=== PATIENT | male | born 1960 | race Caucasian/White ===

== ENCOUNTER 2020-12-06 08:46 | Observation (INO) | payer SELFPAY ==
[2020-12-06] VITALS (114 sets, daily range): BP systolic 110–180; BP diastolic 50–117; PULSE 58–80; RESP 7–30; TEMP 36.7–36.9; O2SAT 80–100
--- NOTE | 2020-12-06 09:34 | ECG_ITS ---
[facility] Test Date: 2020-12-06 Pat Name: Jeff Rosa Department: Room: 105 Gender: Male Health Care Legal Assistant: : 1960 Requested By: Janette Garrido Order Number: [id number] Maryann MD: Lars Squiers M.D. Measurements Intervals [place] Rate: 57 P: 57 MO: 135 QRS: 45 QRSD: 82 T: 73 QT: 451 QTc: 441 Interpretive Statements SINUS BRADYCARDIA LEFT VENTRICULAR HYPERTROPHY AND ST-T CHANGE [VOLTAGE CRITERIA PLUS ST/T ABNORMALITY] No previous ECG available for comparison Electronically Signed On 12-06-2020 17:01:05 SHELL CORE AND MOLDING SUPERVISOR by Lars Squires M.D. [id number]
--- NOTE | 2020-12-06 09:36 | XRR_ITS ---
PROCEDURE INFORMATION: Exam: XR Chest, 2 Views Exam date and time: 12/06/2020 10:11 AM Age: 60 years old Clinical indication: Chest pain; Additional info: Cghest pain TECHNIQUE: Imaging protocol: XR of the chest Views: 2 views. COMPARISON: No relevant prior studies available. FINDINGS: Lungs: Unremarkable. No consolidation. Pleural spaces: Unremarkable. No pleural effusion. No pneumothorax. Heart/Mediastinum: Unremarkable. No cardiomegaly. Bones/joints: Unremarkable. XR/XR chest 2V* [id number] IMPRESSION: No acute findings.
--- NOTE | 2020-12-06 09:40 | USCV_ITS ---
Shelley Jeff Age: 60 Gender: M : 1960 Exam Date: 12/06/2020 13:27 Ordering Phys: Ortiz Burton MD Technologist: Brenda Guy [place] [facility] [place]ication: SOB BP: 159 / 79 HR: 74 Rhythm: Sinus Technical Quality: Fair MEASUREMENTS (Male / Female) Normal Values 2D ECHO LV Diastolic Diameter PLAX 3.9 cm 4.2 - 5.9 / 3.9 - 5.3 cm LV Systolic Diameter PLAX 2.5 cm LV Chamber Size 2.8 cm IVS Diastolic Thickness 1.7 cm 0.6 - 1.0 / 0.6 - 0.9 cm IVS Systolic Thickness 2.1 cm LVPW Diastolic Thickness 0.8 cm 0.6 - 1.0 / 0.6 - 0.9 cm LVPW Systolic Thickness 1.3 cm RV Chamber Size 2.3 cm LVOT Diameter 2.2 cm LV Ejection Fraction 2D Teich 66.0 % LV Ejection Fraction MOD 2C 57.4 % LV Ejection Fraction 2C AL 60.3 % LA Diameter 2.1 cm LA Width 2.6 cm LA Height 4.4 cm RA Width 1.9 cm RA Height 4.1 cm Aorta at Sinotubular Diameter 3.1 cm M-MODE LV Diastolic Diameter MM 5.9 cm 4.2 - 5.9 / 3.9 - 5.3 cm LV Systolic Diameter MM 4.3 cm LV Ejection Fraction MM Teich 51.1 % IVS Diastolic Thickness MM 1.4 cm 0.6 - 1.0 / 0.6 - 0.9 cm IVS Systolic Thickness MM 2.0 cm LVPW Diastolic Thickness MM 1.3 cm 0.6 - 1.0 / 0.6 - 0.9 cm LVPW Systolic Thickness MM 1.8 cm Aortic Annulus Diameter 3.6 cm LA Ao Ratio MM 0.6 MV E Point Septal Separation 0.8 cm DOPPLER AV Peak Velocity 94.3 cm/s LVOT Peak Velocity 75.0 cm/s AV Area Cont Eq vti 3.1 cm squared AV Area Cont Eq pk 2.9 cm squared MV Area PHT 3.1 cm squared Mitral E to A Ratio 1.4 MV E' Velocity 44.5 cm/s Mitral E to MV E' Ratio 6.1 Mitral E to LV E' Lateral Ratio 5.4 Mitral E to LV E' Septal Ratio 7.1 TV Peak E Velocity 55.0 cm/s Right Atrial Pressure 3.0 mmHg FINDINGS Left Ventricle Normal left ventricular size and systolic function with no regional wall motion abnormalities. EF is 55 to 60%. Normal diastolic filling pattern. Right Ventricle The right ventricle is normal in size and function. Right Atrium The right atrium is normal in size. Left Atrium The left atrium is normal in size. Mitral Valve Structurally normal mitral valve without significant stenosis or prolapse. There is no mitral regurgitation. Aortic Valve Structurally normal aortic valve without significant sclerosis or stenosis. There is no aortic regurgitation. Tricuspid Valve Structurally normal tricuspid valve without significant stenosis. Trace tricuspid regurgitation. Insufficient TR jet to calculate RVSP. Pulmonic Valve Structurally normal pulmonic valve without significant stenosis. There is no pulmonic regurgitation. Pericardium Normal pericardium without effusion. Aorta Normal ascending aorta dimension. CONCLUSIONS LV systolic function is normal with EF of 55 to 60%. Normal diastolic function. No significant valvular heart disease is seen. Trace tricuspid regurgitation is seen. No comparisons studies are available. Lars Squires MD (Electronically Signed) Final Date: 06 December 2020 18:07 S
--- NOTE | 2020-12-06 10:07 | PM.CONSULT ---
Providers/Reason For Consult Consulting Physican/Specialty*: Lars Squires MD/ Cardiology Reason for Consult*: NSTEMI Requesting Physcian: Dr Potter Attending Physician: Janette Garrido MD History of Present Illness History of Present Illness Jeff Rosa is a 60 year old male with past medical history of hypertension and diabetes presented to [facility] last night with 1 hour of chest pain. According to patient he started noticing chest pain at 10 PM last night. It was substernal, severe about 9/10 in intensity. It radiated to his left arm and jaw. He did not have any history of coronary artery disease. He is a current smoker and smokes about 1 pack/day. Patient was offered to be transferred to [facility] however he wanted to drive by himself and came last night to the hospital. His initial troponin was 52 that trended up to 69. Review of Systems Narrative: CONSTITUTIONAL: No fever chills weight loss or gain or night sweats. [] HEENT: Normocephalic, atraumatic.[] RESPIRATORY: No cough, sputum, hemoptysis or wheezing.[] CARDIOVASCULAR: No shortness of breath, chest pain, PND, orthopnea, lower extremity edema, presyncope or syncope. [] GI: no nausea vomiting diarrhea. [] QUALITY NURSE: No numbness, tingling, weakness or loss of function in any part of the body. [] MUSCULOSKELETAL: No knee or joint pain or rashes. [] Meds/Allergies Home Medications and Allergies Home Medications Medication Instructions Recorded Confirmed Last Taken Type No Known Home Medications 12/06/20 12/06/20 Unknown History Allergies Allergy/AdvReac Type Severity Reaction Status Date / Time No Known Allergies Allergy Verified 12/06/20 09:37 PFSH Acute PFSH: Medical History Diabetes Hypertension Social History Smoking and tobacco status: current every day smoker Vitals/I&O/Wt Weight last 48 hrs Weight 165 lb 9.6 oz Physical Exam Narrative: EXAM NARRATIVE: GENERAL: Patient is alert, awake and oriented x3. [] NECK: No jugular vein distension. [] HEENT: No cyanosis. No icterus. No pallor. [] HEART: Regular S1 and S2. No murmur, rub or gallop. [] LUNGS: Clear to auscultate bilaterally. [] ABDOMEN: Soft, nontender and nondistended. Positive bowel sounds. No guarding, rebound or tenderness. [] CENTRAL NERVOUS SYSTEM: Grossly nonfocal. [] EXTREMITIES: Lower extremities with no edema bilaterally. Pulses palpable in the lower extremities, both dorsalis pedis and posterior tibial. [] A&P Assessment and plan (1) NSTEMI (non-ST elevated myocardial infarction): Status: Acute (2) Diabetes: Status: Acute (3) Hypertension: Status: Acute (4) Chest pain: Status: Acute Patient had typical chest pain associated with troponin elevation. He has significant coronary artery disease risk factors. We will proceed with coronary angiogram with possible percutaneous coronary intervention. I had a detailed discussion with patient about risks and benefits of the procedure. Risks including bleeding, infection, abnormal heart rhythm, kidney function worsening, heart attack, stroke or have been described. Patient understands the risks and benefits and wants to proceed with the procedure. Keep n.p.o. Continue aspirin and statin. Management of diabetes per primary team. Thank you for involving us with care of this patient. Cardiology will continue to follow. Coding Level of Care Code Acute Floor Coverings Installer for Viraj Baxter Diagnoses NSTEMI (non-ST elevated myocardial infarction) I21.4 Diabetes E11.9 Hypertension I10 Chest pain R07.9
--- NOTE | 2020-12-06 10:10 | XACV_ITS ---
Exam Room: [facility] Ht: 170 cm Wt: 75 kg BSA: 1.89 m2 Gender: Male : 1960 Any Known Allergies: No known allergies Exam Priority: Routine Procedure(s): Procedure Description: Diagnostic procedure Procedure Description: Left Heart Catheterization Procedure Description: Left ventriculography Procedure Description: Coronary Angiography Diagnostic Cath Status: Urgent Diagnostic Findings * LAD arises from left main artery. It has mild luminal irregularities. Gives rise to a medium sized diagonal artery. No significant stenosis is seen either in LAD or diagonal.. * Left circumflex artery is a medium sized vessel. It has luminal irregularities however no significant stenosis is seen.. * RCA is a large vessel that gives rise to a PDA and a PLV branch. No significant stenosis is seen. RCA has 0% stenosis. * There is a distal left main artery severe * 80% stenosis. LM: Severe 80% stenosis, KAILEY: 3 flow. * Ramus intermedius:It is a medium sized vessel. No significant stenosis is seen.. * Coronary angiography shows right dominance. Conclusions 1. There is severe coronary artery disease with severe left main stenosis. 2. Normal left ventricular systolic function. Ejection fraction of 55%. Recommendations * Patient has isolated severe distal left main stenosis. We will recommend consult CT surgery for possible coronary artery bypass surgery. * Transfer back to [facility]. * Consult CT surgery. * Continue aspirin, hold Plavix. * Continue anticoagulation. Interventional RX Recommendation: CABG Diagnostic RX Recommendation: CABG Anticoagulation: Heparin Ventriculography Ejection Fraction: 55.0 % Pressures Phase:Rest AO : 164 / 86 ( 117 ) @ 4:51:00 AM 156 / 83 ( 116 ) @ 4:59:00 AM 186 / 94 ( 126 ) @ 5:10:00 AM 163 / 85 ( 114 ) @ 5:16:00 AM 184 / 86 ( 125 ) @ 5:22:00 AM 182 / 83 ( 124 ) @ 5:22:00 AM LV : 196 / 5 / @ 5:21:00 AM 184 / 3 / @ 5:22:00 AM 184 / 3 / @ 5:22:00 AM Valves Phase:DefaultPhase AV : 0.0 @ 11:35:04 AM AV Mean Gradient: 0.0 @ 11:35:04 AM Clinical Evaluation EBL: 5mL-10mL Procedural Details Procedure Consent Obtained. Pre-Procedure Time Out. Identified patient by full name and date of as verbalized by the patient/guarantor. Does the consent match the physician's order: Yes. Accurate & Complete Informed Consent: Yes. Inpatient/Outpatient History & Physical on Chart: Yes. If H&P is completed, is and addenduem needed: No; If yes, is the addendum complete: N/A. Visualize and Verify Site with Patient/Guarantor: N/A. Relevant Radiology Images available: N/A. Pre-op teaching completed and patient verbalized understanding. The risks, benefits, and alternatives of sedation and/or procedure were discussed by physician. The patient agrees to continue. Procedure started. [facility] Clinical Fraility Score: 2: Well. Production Controller Indications: ACS <= 24 hours. Chest Pain Symptom Assessment: Typical Angina Symptoms. Cardiovascular Instability: No. Correct patient, site and procedure confirmed by cath team. PERRLA. Strong, equal hand music manager bilaterally. Lungs clear x 5 lobes. IV Site on Arrival: 20 gauge in the left forearm. IV Fluids: 0.9% NaCl at KVO. 0 mL infused prior to slab polisher. Pre Procedural Pulses: bilateral radial was 3+. Pre Procedural Pulses: bilateral dorsalis pedis was Doppled. Pre Procedural Pulses: bilateral posterior tibial was Doppled. Oxygen started at 2liters/min via nasal canula. Physician arrived. Equipment: 6F - Radial. Cardiac Cath Pack. ACIST Manifold Kit Model BT 2000. Heparinized Saline (2 units/mL), 1000 mL bag. bilateral groins was prepped with chloroprep then draped in the usual sterile fashion. right radial was prepped with chloroprep then draped in the usual sterile fashion. Baseline sample Acquired. HR: 58 BPM. Physician scrubbed in. Immediate Pre-Procedure Time Out. Correct Patient: Yes; Correct Procedure: Yes; Correct Site: Yes; Correct Patient Position: Yes; Correct Supplies: Yes; Dried Flammable Prep: Yes; Blood Products Available: N/A;. Lidocaine 1% infiltrated to the right radial. Arterial access obtained. A 5 bolivian TIG catheter in over wire. Multiple views taken of right coronary artery. Catheter redirected to the LCA. Catheter removed over the exchange wire. A 5 bolivian JL3.5 catheter in over wire. Catheter removed over the exchange wire. Unable to seat catheter for images of left coronary artery. Physician moving to groin approach. Lidocaine 1% infiltrated to the right groin. Arterial access obtained with micropuncture set. A 5 bolivian JL3.5 catheter in over wire. Catheter out. A 5 bolivian JL4 catheter in over wire. Multiple views taken of left coronary artery. Catheter removed over the standard wire. A 5 bolivian Angled Pig catheter in over wire. EDP Sample taken: LV 196/5,22; HR: 69 BPM; SpO2: 100%. LV gram performed in LOVE @ 10 mL/second for a total of 30 mL. EDP Sample taken: LV 184/3,22; HR: 67 BPM; SpO2: 100%. Pullback taken: LV 184/3,23; AO 184/86(125); Mean: 0mmHg, Peak to Peak: 0mmHg, SEP: 16sec/min; HR: 67 BPM; SpO2: 100%. Catheter removed over the standard wire. Hand injection performed through the sheath. A TR Band was successful obtaining hemostatsis at the Right Radial artery insertion site. A Angio-Seal Evolution was successful obtaining hemostatsis at the Right Femoral artery insertion site. Lot # [id number]. Manual pressure held at access site. Post Procedure: Pulses reassessed and unchanged. PERRLA. Strong, equal hand music manager bilaterally. No VTE prophylaxis required. Medication's Wasted: Lidocaine 1% = 6 mL. Medication's Wasted: Nitro = 49.6 mg. Medication's Wasted: Heparin = 4000 units. Medication's Wasted: Other = versed 2 mg. Total IV fluids: 75 mL. Medication's Wasted: Other = hydralazine 10 mg. Contrast type used: Omnipaque 300 mgI/mL, 500 mL bottle. Complications: none. Post-op diagnosis: severe left main stenosis. Estimated blood loss: 5mL-10mL. Procedure completed. Patient transferred by bed to 1st floor. Vital chart was stopped. Access Site Site: Right Radial artery Sheath Size: 6 Fr Hemostasis Method: TR Band Hemostasis Success: Successful Site: Right Femoral artery Sheath Size: 6 Fr Hemostasis Method: Angio-Seal VIP ([place]) Hemostasis Success: Successful Procedure Medications Start: 10:38 AM Stop: 10:38 AM Medication: Versed Amount: 1 mg Route: I.V. Start: 10:38 AM Stop: 10:38 AM Medication: Fentanyl Amount: 50 mcg Route: I.V. Start: 10:41 AM Stop: 10:41 AM Medication: Versed Amount: 1 mg Route: I.V. Start: 10:48 AM Stop: 10:48 AM Medication: Nitrogylcerin Amount: 200 mcg Route: I.A. Start: 10:48 AM Stop: 10:48 AM Medication: Fentanyl Amount: 50 mcg Route: I.V. Start: 10:50 AM Stop: 10:50 AM Medication: Heparin Amount: 5000 units Route: I.V. Start: 11:16 AM Stop: 11:16 AM Medication: Nitrogylcerin Amount: 200 mcg Route: I.C. Start: 11:23 AM Stop: 11:23 AM Medication: Hydralazine Amount: 10 mg Route: I.V. I, the attending physician, have reviewed and verified all procedure medications. Yes, all medications given per verbal order History/Risk Factors Hypertension: Yes Dyslipidemia: No Peripheral Arterial Disease (PAD): No Myocardial Infarction (ND): No Obesity: No Renal Disease: No Tobacco Use: Current/Recent(w/in 1 year) Prior Interventions PCI: No CABG: No Valve Surgery: No Report Signatures Finalized by Lars Squires MD on 12/14/2020 10:36 AM
--- NOTE | 2020-12-06 10:12 | P.HP_ITS ---
Providers/Chief Complaint Admitting Physician: Janette Garrido MD History of Present Illness Jeff Rosa is a 60 year old male with a past medical history of high blood pressure not on any medications, type 2 diabetes mellitus, not on any medications, current smoker over [id number], no other significant medical history, no history of CHF, history of CAD, history of strokes, no history of chronic kidney disease, no history of COPD who presents to [facility] as a transfer from [facility] for chest pain. 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 He tells me that last night at roughly 10 PM, he started to experience severe substernal chest pain radiating up to his neck and down his left arm, associate with some shortness of breath, no lightheadedness, no dizziness, no diaphoresis, pain lasted roughly about an hour, he went to [facility], where he was diagnosed with a non-ST elevation RI, his EKG showed inferior wall ischemia with T wave inversions inferior leads, he was given nitroglycerin, the chest pain abated, he is also found to be hypertensive, blood pressure in the 150s over 90s, he is troponins were 59 and 64, he was advised to come to [facility] as a transfer via ambulance, however patient refused, patient wanted to have his girlfriend drive him, this was roughly at 3 AM, patient did not show up to [facility] until 9:15 AM or so, currently telling me that about an hour ago he started to develop some substernal chest pain, 2 out of 10, minimal, aching pain. Stat EKG showed sinus bradycardia heart rate 57, no inferior wall ischemia, no T wave inversions that I could see, no ST-T wave changes, troponin series is pending, I have consulted Dr. Squires from cardiology, patient should be kept n.p.o., Review of Systems Const: Denies: fever(s), chills, fatigue or malaise Eyes: Denies: change in vision or blurry vision ENMT: Denies: nasal congestion Card: Reports: chest pain; Denies: palpitations Resp: Denies: dyspnea, productive cough, non-productive cough or wheezing GI: Denies: abdominal pain, nausea, vomiting, hematemesis, diarrhea, constipation, hematochezia or melena : Denies: flank pain, difficulty urinating, dysuria or urinary frequency Musc: Denies: neck pain or back pain Skin/Breast: Denies: rash Neuro: Denies: headache(s), dizziness or vertigo Psych: Denies: anxiety or depression Endo: Denies: polyuria or polydipsia Medications/Allergies Home Medications Medication Instructions Recorded Confirmed Last Taken Type No Known Home Medications 12/06/20 12/06/20 Unknown History Allergies Allergy/AdvReac Type Severity Reaction Status Date / Time No Known Allergies Allergy Verified 12/06/20 09:37 Additional Medication Information Takes aspirin 81 mg PFSH Acute PFSH: Medical History Diabetes Hypertension Surgical History (Updated 12/06/20 @ 10:16 by Ortiz Burton MD) History of dental surgery Family History (Updated 12/06/20 @ 10:17 by Ortiz Burton MD) Sister No problems noted. Mother Diabetes Social History (Updated 12/06/20 @ 10:17 by Ortiz Burton MD) Smoking and tobacco status: current every day smoker Alcohol intake: current Alcohol intake frequency: holidays/special occasions only Substance/Drug Use: former Vitals/I&O/Wt Weight last 48 hrs Weight 75.115 kg Physical Exam Const: COMMON NORMALS: no acute distress and patient oriented x3 GENERAL APPEARANCE: cooperative and comfortable HENMT: COMMON NORMALS: normocephalic HEAD & SCALP: normocephalic Eye: COMMON NORMALS: Equal, round and reactive pupils present and EOMs intact bilaterally GENERAL EYE: appearance normal, both eyes and all related structures PUPIL: Yes Equal, round and reactive pupils present Neck/C-Spine: COMMON NORMALS: full ROM, no lymphadenopathy, no JVD and Thyroid normal THYROID: Thyroid normal Lymph: LYMPHATIC: no lymphadenopathy noted Resp: COMMON NORMALS: normal respiratory effort, No retractions, No use of accessory muscles and clear to auscultation bilaterally AUSCULTATION: clear to auscultation bilaterally Cardio: COMMON NORMALS: no JVD, regular rate, regular rhythm, S1 normal heart sound present, S2 normal heart sound present, No gallops present (Cardio), No clicks present (Cardio) and No murmurs present (Cardio) RATE: regular rate RHYTHM: regular rhythm HEART SOUNDS: S1 normal heart sound present and S2 normal heart sound present GI: COMMON NORMALS: Normal to inspection, nondistended, normoactive bowel sounds present, Soft to palpation, non-tender and No hepatosplenomegaly present PALPATION: Yes Soft to palpation and Yes No hepatosplenomegaly present Extremity: COMMON NORMALS: normal to inspection, full ROM and no pedal edema Neuro: COMMON NORMALS: patient oriented x3, CN's II-XII intact bilaterally, moves all extremities and no focal motor deficits Psych: COMMON NORMALS: mental status grossly normal, Normal thought process present and cooperative THOUGHT PROCESS: Normal thought process present A&P Assessment and plan (1) NSTEMI (non-ST elevated myocardial infarction): -Serial EKGs, serial troponins -CBC, CMP, BMP, chest x-ray -Aspirin 325 mg, atorvastatin 80 mg, Coreg 3.25 twice daily -Nitro for chest pain, can start nitro drip if chest pain persists -Continue therapeutic Lovenox -Cardiac echocardiogram ordered -Telemetry monitoring, monitor for chest pain -Keep patient n.p.o. -Cardiology has been consulted for cardiac catheterization -Full code Status: Acute (2) Chest pain: Status: Acute (3) Hypertension: Monitor blood pressures, likely will require the addition blood pressure medications Status: Acute (4) Diabetes: Type 2 diabetes mellitus, check blood sugars, check A1c Status: Acute Attestations Medical Necessity Statement*: Patient requires hospitalization, outpatient with observation, for chest pain, NSTEMI Coding Level of Care Code Acute B2B Outside Sales Representative for [facility] Diagnoses NSTEMI (non-ST elevated myocardial infarction) I21.4 Chest pain R07.9 Hypertension I10 Diabetes E11.9
[2020-12-06 10:18] LABS: Basophils % 0.1 %; Eosinophils # 0.2 10^3/uL (0.0-0.8); Eosinophils % 1.5 %; Hematocrit 47.3 % (42.0-52.0); Hemoglobin 15.5 g/dL (11.7-16.6); Lymphocytes # 2.5 10^3/uL (0.8-4.8); Lymphocytes % 24.5 %; Mean Corpuscular HGB Conc 32.8 g/dL (30.0-36.0); Mean Corpuscular Hemoglobin 29.9 pg (28.0-34.0); Mean Corpuscular Volume 91.1 fL (80-94); Mean Platelet Volume 9.8 fL (7.4-10.4); Monocytes # 0.6 10^3/uL (0.2-0.9); Neutrophils # 6.76 10^3/uL (1.8-7.7); Neutrophils % 67.6 %; Nucleated Red Blood Cells % 0 %; Platelet Count 234 10^3/cmm (130-400); Red Blood Count 5.19 10^6/uL (4.1-5.3); Red Cell Distribution Width 13.2 % (12.1-15.1)
[2020-12-06 10:53] LABS: Estmated Average Glucose 131; Hemoglobin A1C 6.2 % (4.0-6.0)
[2020-12-06 10:57] LABS: Alanine Aminotransferase 13 U/L (0-41); Albumin Level 3.8 g/dL (3.5-5.2); Alkaline Phosphatase 48 IU/L (40-130); Aspartate Amino Transferase 15 U/L (0-40); Blood Urea Nitrogen 13 mg/dL (6-20); C Reactive Protein 5.3 mg/L (0.0-4.9); Calcium 8.9 mg/dL (8.5-10.5); Carbon Dioxide 24 mmol/L (22-29); Chloride 107 mmol/L (98-107); Globulin 3.2 g/dL (1.3-4.6); Glomerular Filtration Rate 138.4 mL/min (90-130); Glucose 108 mg/dL (65-115); NT Pro B Type Natriuretic Pept 374 pg/mL (0-125); Osmolality Calculated 291 mOsm/kg (285-295); Phosphorus 3.2 mg/dL (2.5-4.5); Sodium 140 mmol/L (136-145); Thyroid Stimulating Hormone 1.62 uIU/mL (0.27-4.20); Total Bilirubin 0.2 mg/dL (0.15-1.2)
--- NOTE | 2020-12-06 11:00 | PC.NURSE ---
1015 patient off unit for angio
[2020-12-06 11:04] LABS: Anion Gap 13.3 (5-19); Potassium 4.3 mmol/L (3.5-5.1)
--- NOTE | 2020-12-06 11:36 | ECG_ITS ---
[facility] Test Date: 2020-12-06 Pat Name: Jeff Rosa Department: Room: 105 Gender: Male Technology Advisor: : 1960 Requested By: Ortiz Burton Order Number: [id number] Maryann MD: Lars Squires M.D. Measurements Intervals [place] Rate: 75 P: 67 SC: 138 QRS: 55 QRSD: 88 T: 74 QT: 433 QTc: 485 Interpretive Statements SINUS RHYTHM POSSIBLE LEFT ATRIAL ENLARGEMENT [-0.1mV P WAVE IN V1/V2] PROLONGED QT INTERVAL Compared to ECG 12/06/2020 09:43:48 Prolonged QT interval now present Sinus bradycardia no longer present Left ventricular hypertrophy no longer present ST (T wave) deviation no longer present Electronically Signed On 12-06-2020 17:05:19 BUFFING WHEEL INSPECTOR by Lars Squires M.D. [id number]
--- NOTE | 2020-12-06 12:03 | PC.NURSE ---
received from cardiac slab polisher at 1155 via bed.report received.pt is alert and oriented.denies pain at present.sr on monitor.right wrist with tr band on and inflated.right hand is warm to touch and with brisk capillary refill.palpable radial pulse noted distal to tr band.no hematoma noted.right femoral artery was angiosealed in slab polisher.right groin drsg is dry and intact.no hematoma noted.right leg/foot is warm to touch and with brisk capillary refill.palpable dp pulse noted.instructed in activity restrictions s/p radial and femoral procedures...and instructed to notify staff for any bleeding,pain,numbness...or for any concerns at all.pt verb understanding of instructions.
[2020-12-06 12:29] LABS: Glucose Point of Care 93 mg/dL (70-110)
--- NOTE | 2020-12-06 13:00 | PC.NURSE ---
spoke with Dr. arenas about missed medications okayed to give daily medications now change lovenox to Q12 hours starting at 1445 change coreg to q12H starting at 1800
[2020-12-06] MEDS: atorvastatin 40 mg Tablet 80 MG PO (13:17)
[2020-12-06] MEDS: pantoprazole DR 40 mg Tablet PO (13:18)
[2020-12-06 14:55] LABS: Troponin(5th) Baseline 69 ng/L (0-15)
[2020-12-06 14:56] LABS: Troponin 5 2HR 66.35 ng/L (0-15)
[2020-12-06 15:06] LABS: Troponin 5 2HR Delta -2.65 ABS# (0-10)
[2020-12-06 16:43] LABS: Troponin 5 6HR 68.39 ng/L (0-15)
[2020-12-06 16:48] LABS: Troponin 5 6HR Delta -0.61 ng/L (0-12)
--- NOTE | 2020-12-06 17:06 | PC.NURSE ---
Tr band removed per protocol no bleeding or hematoma noted
--- NOTE | 2020-12-06 17:14 | PC.NURSE ---
nurse missed scheduled dose of Lovenox at [address] dagoberto garcia to re-time and given now
[2020-12-06] MEDS: carvedilol 3.125 mg Tablet PO (17:19)
[2020-12-06 17:27] LABS: Glucose Point of Care 87 mg/dL (70-110)
[2020-12-06] MEDS: enoxaparin 80 mg/0.8 mL Syringe SUBCUT (17:27)
[2020-12-07] VITALS (58 sets, daily range): BP systolic 117–158; BP diastolic 65–78; PULSE 58–77; RESP 10–23; TEMP 36.3–37; O2SAT 96–98
[2020-12-07 04:02] LABS: Basophils % 0.1 %; Eosinophils # 0.2 10^3/uL (0.0-0.8); Eosinophils % 1.7 %; Hematocrit 47.5 % (42.0-52.0); Hemoglobin 15.3 g/dL (11.7-16.6); Lymphocytes # 1.8 10^3/uL (0.8-4.8); Lymphocytes % 20.2 %; Mean Corpuscular HGB Conc 32.2 g/dL (30.0-36.0); Mean Corpuscular Hemoglobin 29.6 pg (28.0-34.0); Mean Corpuscular Volume 91.9 fL (80-94); Mean Platelet Volume 10.1 fL (7.4-10.4); Monocytes # 0.6 10^3/uL (0.2-0.9); Monocytes % 7.1 %; Neutrophils # 6.36 10^3/uL (1.8-7.7); Neutrophils % 70.6 %; Nucleated Red Blood Cells % 0 %; Platelet Count 247 10^3/cmm (130-400); Red Blood Count 5.17 10^6/uL (4.1-5.3); Red Cell Distribution Width 13.4 % (12.1-15.1)
[2020-12-07 04:22] LABS: Alanine Aminotransferase 10 U/L (0-41); Albumin Level 3.5 g/dL (3.5-5.2); Alkaline Phosphatase 43 IU/L (40-130); Aspartate Amino Transferase 10 U/L (0-40); Blood Urea Nitrogen 14 mg/dL (6-20); Calcium 8.4 mg/dL (8.5-10.5); Carbon Dioxide 24 mmol/L (22-29); Chloride 107 mmol/L (98-107); Chol HDL Ratio 4.23 mg/dL (1.0-5.00); Cholesterol 131 mg/dL (0-200); Globulin 2.9 g/dL (1.3-4.6); Glomerular Filtration Rate 115.8 mL/min (90-130); Glucose 107 mg/dL (65-115); HDL Cholesterol 31 mg/dL (60-100); LDL Cholesterol Calculated 79 mg/dL (50-129); LDL HDL Ratio 2.55 RATIO (0.00-3.22); Magnesium 1.9 mg/dL (1.7-2.3); Osmolality Calculated 289 mOsm/kg (285-295); Phosphorus 3.2 mg/dL (2.5-4.5); Sodium 139 mmol/L (136-145); Total Bilirubin 0.6 mg/dL (0.15-1.2); Total Protein 6.4 g/dL (6.6-8.7); Triglycerides 105 mg/dL (0-150)
[2020-12-07] MEDS: enoxaparin 80 mg/0.8 mL Syringe SUBCUT (06:27)
[2020-12-07] MEDS: carvedilol 3.125 mg Tablet PO (06:28)
[2020-12-07 06:47] LABS: Glucose Point of Care 83 mg/dL (70-110)
[2020-12-07] MEDS: pantoprazole DR 40 mg Tablet PO (09:03)
[2020-12-07] MEDS: atorvastatin 40 mg Tablet 80 MG PO (09:03)
[2020-12-07] MEDS: amlodipine 10 mg Tablet PO (09:03)
[2020-12-07] MEDS: aspirin 325 mg EC Tablet PO (09:03)
--- NOTE | 2020-12-07 09:17 | PC.CHAP ---
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 [] Patient/Family/Request visit [] Outpatient visit [] Follow-up visit [] Physician referral [] Code/Alert [x] Routine visit [] Staff referral [] Actively dying [] Patient sleeping [] Family support [] [] Out of room [] Palliative care [] [] Receiving care in room [] Pre-surgical visit [] Trauma [] Long length of stay [] ICU visit [] Other: Relational/Emotional Strength [] Patient feels connected with others/family/visitors/staff [] Distress [] Loneliness/isolation [] Abandonment Spirituality of Patient [x] Person of Kim [] Attends Congregational of their Kim [] Believes in Prayer [] Reads Bible or Alevism materials [] There are Spiritual issues to be addressed Sheep Killer Interventions [x] Prayer [x] Active listening [x] Non-anxious presence [x] Spiritual/emotional support [] Crisis/trauma care [] Spiritual counseling [] Bereavement support [] Provided bereavement packet [] Provided Bible/devotional materials [] Provided toy/stuffed animal, coloring book to patient or family member [] Provided Communion [] Anointing/[place] [] Salvation [x] Completed spiritual assessment [] Other: Impact on Illness or Injury [] Angry [] Fearful [] Anxious [] Often cries [] Exhaustion [] Unable to work [] Unable to attend yarsani [] Unable to walk/stand [] Unable to read [] Unable to drive [] Unable to eat/drink [] Unable to sleep [] Unable to be with family [] Patient intubated [] Other: Summary blockage... being address and hopes to be home soon Time spent with patient 10 min
[2020-12-07 11:14] LABS: Glucose Point of Care 164 mg/dL (70-110)
--- NOTE | 2020-12-07 11:38 | P.PN_ITS ---
Subjective Subjective: Interval history: This morning patient was examined, he tells me that he is doing well overnight, no episode of chest pain, no nausea, no vomiting, Vitals/I&O/Wt Last Vital Signs Temp 98.0 F 12/07/20 07:05 Pulse 77 12/07/20 07:05 Resp 15 12/07/20 07:05 BP 139/67 12/07/20 07:05 Pulse Ox 97 12/07/20 03:50 12/06/20 12/07/20 12/07/20 22:59 06:59 14:59 Intake Total 460 / 580 240 / 820 360 / 360 Output Total 0 / 0 350 / 350 Balance 460 / 580 -110 / 470 360 / 360 Weight last 48 hrs Weight 75.115 kg Physical Exam Const: COMMON NORMALS: no acute distress and patient oriented x3 HENMT: COMMON NORMALS: normocephalic HEAD & SCALP: normocephalic Neck/C-Spine: COMMON NORMALS: no JVD Resp: COMMON NORMALS: normal respiratory effort, No retractions, No use of accessory muscles and clear to auscultation bilaterally AUSCULTATION: clear to auscultation bilaterally Cardio: COMMON NORMALS: no JVD, regular rate, regular rhythm, S1 normal heart sound present and S2 normal heart sound present RATE: regular rate RHYTHM: regular rhythm HEART SOUNDS: S1 normal heart sound present and S2 normal heart sound present GI: COMMON NORMALS: Normal to inspection, nondistended, normoactive bowel sounds present, Soft to palpation, non-tender, No hepatosplenomegaly present, no masses and no bruits PALPATION: Yes Soft to palpation and Yes No hepatosplenomegaly present Extremity: COMMON NORMALS: capillary refill normal, no clubbing, cyanosis or edema, no calf tenderness and no pedal edema Neuro: COMMON NORMALS: patient oriented x3 Psych: COMMON NORMALS: mental status grossly normal Data : 12/07/20 03:23 12/07/20 03:23 A&P Assessment and plan (1) NSTEMI (non-ST elevated myocardial infarction): -Start us post cardiac catheterization by Dr. Squires, shows significant LAD disease, awaiting cardiothoracic evaluation by Dr. Chirinos -Aspirin 325 mg, atorvastatin 80 mg, Coreg 3.25 twice daily -Nitro for chest pain, can start nitro drip if chest pain persists -Continue therapeutic Lovenox -Cardiac echocardiogram shows EF of 55 to 60%, normal diastolic function -Telemetry monitoring, monitor for chest pain -Cardiac diet -Full code Status: Acute (2) Chest pain: Status: Acute (3) Hypertension: Monitor blood pressures, add Norvasc 10 mg daily Status: Acute (4) Diabetes: Type 2 diabetes mellitus, check blood sugars, A1c 6.3 Status: Acute Attestations Medical Necessity Statement*: Patient requires hospitalization for NSTEMI, LAD disease, requiring cardiothoracic surgery evaluation Coding Level of Care Code Acute Insurance Claim Representative for [facility] Fw Diagnoses NSTEMI (non-ST elevated myocardial infarction) I21.4 Chest pain R07.9 Hypertension I10 Diabetes E11.9
--- NOTE | 2020-12-07 12:00 | PC.NURSE ---
Patient states he cannot just lay around here all day. He just wants to get up and leave. Dr. Burton was called to notify him that patient wants to leae the hospital now. Dr. Burton arrived promptly to room and explained to patient the risks of leaving without treatment. Patient left AMA despite Dr. Lindsey concerns. IV was removed and dressing placed.
--- NOTE | 2020-12-07 12:35 | P.PN_ITS ---
Subjective Subjective: Interval history: Patient is doing well. Denies ongoing chest pain. He underwent coronary angiography yesterday which showed severe left main stenosis. Awaiting CT surgery evaluation. Vitals/I&O/Wt Last Vital Signs Temp 97.4 F L 12/07/20 11:42 Pulse 61 12/07/20 11:42 Resp 14 12/07/20 11:42 BP 117/68 12/07/20 11:42 Pulse Ox 98 12/07/20 11:42 12/06/20 12/07/20 12/07/20 22:59 06:59 14:59 Intake Total 460 / 580 240 / 820 360 / 360 Output Total 0 / 0 350 / 350 Balance 460 / 580 -110 / 470 360 / 360 Weight last 48 hrs Weight 165 lb 9.6 oz Physical Exam Narrative: EXAM NARRATIVE: GENERAL: Patient is alert, awake and oriented x3. [ ] NECK: No jugular vein distension. [] HEENT: No cyanosis. No icterus. No pallor. [] HEART: Regular S1 and S2. No murmur, rub or gallop. [] LUNGS: Clear to auscultate bilaterally. [] ABDOMEN: Soft, nontender and nondistended. Positive bowel sounds. No guarding, rebound or tenderness. [] CENTRAL NERVOUS SYSTEM: Grossly nonfocal. [] EXTREMITIES: Lower extremities with no edema bilaterally. Pulses palpable in the lower extremities, both dorsalis pedis and posterior tibial. [] Data : 12/07/20 03:23 12/07/20 03:23 A&P Assessment and plan (1) NSTEMI (non-ST elevated myocardial infarction): Status: Acute (2) Diabetes: Status: Acute (3) Hypertension: Status: Acute (4) Chest pain: Status: Acute Patient had typical chest pain associated with troponin elevation. He has significant coronary artery disease risk factors. Coronary angiography revealed severe left main stenosis. I have discussed his case with Dr. Ray who will be evaluating him today. Likely plan for coronary bypass surgery. I have discussed with patient different revascularization options and that the past option for him will be CABG. He understands the plan and is in agreement. Continue aspirin and statin. Beta-cesilia and lisinopril. Management of diabetes per primary team. Thank you for involving us with care of this patient. Cardiology will continue to follow. Attestations Medical Necessity Statement*: Care expected to cross 2 midnights. Coding Level of Care Code Acute Loss Prevention Analyst for [facility] Fwd Diagnoses NSTEMI (non-ST elevated myocardial infarction) I21.4 Diabetes E11.9 Hypertension I10 Chest pain R07.9
--- NOTE | 2020-12-07 12:46 | PM.DCS ---
Discharge Providers Date of Admission: 12/06/20 08:46 Date of Discharge: December 07, 2020 Attending Provider at Admission: Janette Garrido MD Attending Provider at Discharge: Otriz Burton MD Diagnoses at Discharge Discharge Diagnosis (1) NSTEMI (non-ST elevated myocardial infarction): Status: Acute (2) Diabetes: Status: Acute (3) Hypertension: Status: Acute (4) Chest pain: Status: Acute Hospital Course Hospital Course Patient left AGAINST MEDICAL ADVICE Jeff Rosa is a 60 year old male with a past medical history of high blood pressure not on any medications, type 2 diabetes mellitus, not on any medications, current smoker over [id number], no other significant medical history, no history of CHF, history of CAD, history of strokes, no history of chronic kidney disease, no history of COPD who presents to [facility] as a transfer from [facility] for chest pain. 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 He tells me that last night at roughly 10 PM, he started to experience severe substernal chest pain radiating up to his neck and down his left arm, associate with some shortness of breath, no lightheadedness, no dizziness, no diaphoresis, pain lasted roughly about an hour, he went to [facility], where he was diagnosed with a non-ST elevation ID, his EKG showed inferior wall ischemia with T wave inversions inferior leads, he was given nitroglycerin, the chest pain abated, he was also found to be hypertensive, blood pressure in the 150s over 90s, he is troponins were 59 and 64, he was advised to come to [facility] as a transfer via ambulance, however patient refused, patient wanted to have his girlfriend drive him, this was roughly at 3 AM, patient did not show up to [facility] until 9:15 AM or so, patient was not very clear on why it took him so long to get in the hospital, currently telling me that about an hour ago he started to develop some substernal chest pain, 2 out of 10, minimal, aching pain. Patient's initial EKG did not show any acute ST-T wave changes, patient's 6-hour troponin was 60.39, delta of 0.61, BNP 374, patient was immediately taken to the cardiac catheterization lab by Dr. Squires. Cardiac catheterization showed severe left main stenosis, cardiology recommended cardiothoracic surgery evaluation, and likely plan for coronary artery bypass graft. Echocardiogram of the heart showed an EF of 55 to 60%, normal diastolic dysfunction, no significant valvular heart disease. Patient was managed by aspirin, statin, Coreg, therapeutic Lovenox, insulin sliding scale, and clinically monitored. Patient did not have any chest pain episodes for the next 24 hours. The morning of 12/07/2020, patient was doing well, had no complaints of chest pain, was awaiting cardiothoracic surgery evaluation. Early in the morning patient was evaluated by Dr. Ray, upon entering the room, the patient got very upset, asked Dr. Ray and the nurse to leave the room, and refused to be seen. I was paged by the nurses to come see the patient, as he wanted to leave the hospital, and he was refusing to be seen by Dr. Ray. Upon entering the room, patient was getting changed, getting ready to to leave the hospital. I asked the patient what was wrong, he said that he needs to leave the hospital, he needs to take care of his [employer] business, he is losing money, he needs to get out of the hospital, he cannot stay in bed anymore. I asked him why he was so upset suddenly, he did not really provide a clear answer. I advised him that he should stay here in the hospital and be evaluated by Dr. Ray, and have appropriate evaluation and treatment for his cardiovascular disease, and diabetes. However patient was upset, was yelling, Saying he was leaving. Patient was advised of the risks of leaving his medical advice, voiced recently, all questions answered,. Patient left AGAINST MEDICAL ADVICE. I was absolutely clear with the patient, that he has significant cardiovascular disease, he has obstructive cardiovascular disease, he has a high risk of significant cardiovascular event, he has a very high risk of significant morbidity and mortality, high risk of , high risk of arrhythmia, high risk of intubation, high risk of ICU admission, high risk of poor outcome if he leaves the hospital without appropriate intervention and management. Patient voiced understanding, all questions answered, left AGAINST MEDICAL ADVICE. I advised patient that I would send medications to the pharmacy, when I asked to confirm which pharmacy he goes to he would not say. I have sent the patient home on aspirin 81 mg, atorvastatin 80 mg, Coreg 3.125 twice daily, Plavix 35 mg, nitroglycerin as needed for chest pain. For his type 2 diabetes mellitus have set him Metformin 500 twice daily. Protonix 40 mg p.o. daily. I advised patient that if anytime he were to have chest pain, shortness, shortness of breath, lightheadedness, dizziness, or any significant worsening of his symptomatology call 911 or go to the emergency room. In addition, patient said that he ran a [employer] business, I made it absolutely clear that the patient poses a danger to the people on the road, there is a high risk of morbidity and mortality to bystanders, other drivers, damage to property if he were to drive a truck on the road, there is significant risk of and danger to other drivers, and that he should not drive a truck. When I asked him clearly does he drive for this [employer] business, he was not very clear. I reiterated my statement as above, and he said yes he will not drive, he will have somebody drive for him. In addition I advised patient that he should not drive altogether, as he runs a risk of significant morbidity and mortality to other people on the road, and by standers, as he could have an adverse cardiovascular event, and then pose a risk to other drivers and by standers, or property. Patient tells me that he will not drive, he will have someone come and pick him up from the hospital. Patient voiced recently, all questions answered, agreed to not drive any truck for his [employer] business, nor to drive any vehicle, that he will have somebody drive for him. 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 He voices any, all questions answered, agreed to not work currently as he has significant cardiovascular disease requiring surgical intervention. I have reached out to patient's emergency contact Lucina Sharma [phone], listed as a life partner in the chart, she tells me she is more of a friend, I advised that patient poses a risk of danger to himself and others due to my concerns as above, she tells me that he does have children, but does not know the numbers, he does have a brother that lives close to him, but does not have his number, she will try to get in contact with family members. Lastly, we will make a report with the [employer] in regards to the patient's underlying significant cardiovascular status, which patient is choosing to not undergo intervention for, and his risk to himself and other people on the road. 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 Routin e Exams 12/06/20 10:10 Taken Complete Blood Co unt w/Auto AM LABS Lab 12/08/20 04:00 Ordered Complete Blood Co unt w/Auto AM LABS Lab 12/09/20 04:00 Ordered Comprehensive Met abolic Panel AM LA BS Lab 12/08/20 04:00 Ordered Comprehensive Met abolic Panel AM LA BS Lab 12/09/20 04:00 Ordered Magnesium AM LABS Lab 12/08/20 04:00 Ordered Magnesium AM LABS Lab 12/09/20 04:00 Ordered Phosphorus AM LAB S Lab 12/08/20 04:00 Ordered Phosphorus AM LAB S Lab 12/09/20 04:00 Ordered Labs from last 24 hours 12/07/20 12/07/20 12/07/20 11:00 06:33 03:23 WBC RBC Hgb Hct MCV MCH MCHC RDW Plt Count MPV Neut % (Auto) Lymph % (Auto) [place] % (Auto) Eos % (Auto) Baso % (Auto) Neut # (Auto) Lymph # (Auto) [place] # (Auto) Eos # (Auto) Baso # (Auto) Nucleated RBC % (a uto) Nucleated RBCs # Sodium 139 Potassium 4.0 Chloride 107 Carbon Dioxide 24 Anion Gap 12.0 BUN 14 Creatinine 0.7 GFR Calculation 115.8 Glucose 107 POC Glucose 164 H 83 Calculated Osmolal ity 289 Calcium 8.4 L Phosphorus 3.2 Magnesium 1.9 Total Bilirubin 0.6 AST 10 ALT 10 Alkaline Phosphata se 43 Troponin T Baselin e Troponin T 120 Min [place] Delta Troponin T Troponin T Hi Sens 6Hr Troponin T Hi Sens 6Hr Delta Total Protein 6.4 L Albumin 3.5 Globulin 2.9 Triglycerides 105 Cholesterol 131 LDL Cholesterol, C alc 79 HDL Cholesterol 31 L LDL/HDL Ratio 2.55 Cholesterol/HDL Ra harpal 4.23 12/07/20 12/06/20 12/06/20 03:23 17:18 16:05 WBC 9.0 RBC 5.17 Hgb 15.3 Hct 47.5 MCV 91.9 MCH 29.6 MCHC 32.2 RDW 13.4 Plt Count 247 MPV 10.1 Neut % (Auto) 70.6 Lymph % (Auto) 20.2 [place] % (Auto) 7.1 Eos % (Auto) 1.7 Baso % (Auto) 0.1 Neut # (Auto) 6.36 Lymph # (Auto) 1.8 [place] # (Auto) 0.6 Eos # (Auto) 0.2 Baso # (Auto) 0.0 Nucleated RBC % (a uto) 0 Nucleated RBCs # 0.0 Sodium Potassium Chloride Carbon Dioxide Anion Gap BUN Creatinine GFR Calculation Glucose POC Glucose 87 Calculated Osmolal ity Calcium Phosphorus Magnesium Total Bilirubin AST ALT Alkaline Phosphata se Troponin T Baselin e Troponin T 120 Min [place] Delta Troponin T Troponin T Hi Sens 6Hr 68.39 H Troponin T Hi Sens 6Hr Delta -0.61 L Total Protein Albumin Globulin Triglycerides Cholesterol LDL Cholesterol, C alc HDL Cholesterol LDL/HDL Ratio Cholesterol/HDL Ra harpal 12/06/20 12/06/20 12:30 10:10 WBC RBC Hgb Hct MCV MCH MCHC RDW Plt Count MPV Neut % (Auto) Lymph % (Auto) [place] % (Auto) Eos % (Auto) Baso % (Auto) Neut # (Auto) Lymph # (Auto) [place] # (Auto) Eos # (Auto) Baso # (Auto) Nucleated RBC % (a uto) Nucleated RBCs # Sodium Potassium Chloride Carbon Dioxide Anion Gap BUN Creatinine GFR Calculation Glucose POC Glucose Calculated Osmolal ity Calcium Phosphorus Magnesium Total Bilirubin AST ALT Alkaline Phosphata se Troponin T Baselin e 69 H Troponin T 120 Min [place] 66.35 H Delta Troponin T -2.65 L Troponin T Hi Sens 6Hr Troponin T Hi Sens 6Hr Delta Total Protein Albumin Globulin Triglycerides Cholesterol LDL Cholesterol, C alc HDL Cholesterol LDL/HDL Ratio Cholesterol/HDL Ra harpal Vitals: Last Vital Signs Temp 97.4 F L 12/07/20 11:42 Pulse 61 12/07/20 11:42 Resp 14 12/07/20 11:42 BP 117/68 12/07/20 11:42 Pulse Ox 98 12/07/20 11:42 Discharge Plan Discharge Patient Disposition: Left Against Medical Advice Condition: Serious Prescriptions: New atorvastatin 40 mg Tablet 80 mg PO DAILY 30 Days Qty: 30 RF: 0 carvedilol 3.125 mg Tablet 3.125 mg PO 0600,1800 30 Days Qty: 60 RF: 0 amlodipine 10 mg Tablet 10 mg PO DAILY 30 Days Qty: 30 RF: 0 pantoprazole 40 mg Tablet,Delayed Release (Dr/Ec) 40 mg PO DAILY 30 Days Qty: 30 RF: 0 nitroglycerin 0.4 mg Tablet, Sublingual 0.4 mg sublingual Q5M PRN (Reason: Chest Pain) 5 Days Qty: 5 RF: 0 lisinopril 5 mg tablet 5 mg PO DAILY 30 Days Qty: 30 RF: 0 Plavix 75 mg tablet 75 mg PO DAILY 30 Days Qty: 30 RF: 0 aspirin 81 mg tablet,delayed release (DR/EC) 81 mg PO DAILY 30 Days Qty: 30 RF: 0 metformin 500 mg tablet 500 mg PO BID 30 Days Qty: 60 RF: 0 No Action No Known Home Medications RF: 0 Referrals: Lars Squires M.D [Physician] - 1 week Tor Ray MD [Physician] - 1 week Discharge Diet: Cardiac Discharge Activity: Limit activity as instructed Activity Restrictions/Additional Instructions: -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
--- NOTE | 2020-12-07 15:51 | PC.RESP ---
Smoking Cessation information sent to patient.
== END 2020-12-07 12:10 | disposition left against medical advice (07) ==
PROVIDERS: Internal Medicine; Admitting Provider Internal Medicine; Visit Provider Family Medicine
DX: I21.4 Non-ST elevation (NSTEMI) myocardial infarction (principal); R07.9 Chest pain, unspecified; I10 Essential (primary) hypertension; E11.9 Type 2 diabetes mellitus without complications; F17.210 Nicotine dependence, cigarettes, uncomplicated; Z53.29 Procedure and treatment not carried out because of patient's decision for other reasons
CPT/HCPCS: 12345; 36415; 36416; 71046; 80053; 80061; 82962; 83036; 83735; 83880; 84100; 84443; 84484; 85025; 86140; 93005; 93306; 93452; 94664; 96372; C1760; C1769; C1887; C1894; G0378; G0379; J0360; J1644; J1650; J1815; J2250; J3010; J3490; J7030; Q9967

== ENCOUNTER 2022-07-24 00:21 | Emergency (ER) | payer SELFPAY ==
[2022-07-24] VITALS (16 sets, daily range): BP systolic 125–177; BP diastolic 70–91; PULSE 40–68; RESP 16–20; TEMP 36.9; O2SAT 94–100; BMI 25.0
--- NOTE | 2022-07-24 00:24 | ECG_ITS ---
[facility] Test Date: 2022-07-24 Pat Name: Jeff Rosa Department: Room: Gender: Male Family Assistant: : 1960 Requested By: Ifeanyi Blevins Order Number: [id number] Maryann MD: Oseas Shi M.D. Measurements Intervals [place] Rate: 56 P: 69 KS: 134 QRS: 60 QRSD: 86 T: 80 QT: 421 QTc: 406 Interpretive Statements SINUS BRADYCARDIA NONSPECIFIC T-WAVE ABNORMALITY INTERPRETATION BASED ON A DEFAULT AGE OF 40 YEARS Compared to ECG 12/06/2020 12:36:41 T-wave abnormality now present Sinus rhythm no longer present Prolonged QT interval no longer present Electronically Signed On 07-24-2022 8:36:56 CDT by Oseas Shi M.D. [id number]
--- NOTE | 2022-07-24 00:30 | XRR_ITS ---
PROCEDURE INFORMATION: Exam: XR Chest Exam date and time: 07/24/2022 12:38 AM Age: 62 years old Clinical indication: Chest wall pain; Additional info: Cp TECHNIQUE: Imaging protocol: Radiologic exam of the chest. Views: 1 view. COMPARISON: CR XR chest 2V* [id number] 12/06/2020 10:14 AM FINDINGS: Lungs: Unremarkable. No consolidation. Pleural spaces: Unremarkable. No pleural effusion. No pneumothorax. Heart/Mediastinum: Unremarkable. No cardiomegaly. Bones/joints: Unremarkable. XR/XR chest 1V portable [id number] IMPRESSION: No acute findings.
[2022-07-24] MEDS: nitroglycerin 1 gm/inch oint Pkt 1 INCH TOPICAL (00:46)
[2022-07-24 00:49] LABS: Basophils % 0.2 %; Eosinophils # 0.2 10^3/uL (0.0-0.8); Eosinophils % 1.6 %; Hematocrit 45.4 % (42.0-52.0); Hemoglobin 15.4 g/dL (11.7-16.6); Lymphocytes # 2.7 10^3/uL (0.8-4.8); Mean Corpuscular HGB Conc 33.9 g/dL (30.0-36.0); Mean Corpuscular Hemoglobin 30.1 pg (28.0-34.0); Mean Corpuscular Volume 88.7 fl (80-94); Mean Platelet Volume 10.1 fL (7.4-10.4); Monocytes # 0.8 10^3/uL (0.2-0.9); Monocytes % 8.3 %; Neutrophils # 5.58 10^3/uL (1.8-7.7); Neutrophils % 60.6 %; Nucleated Red Blood Cells % 0 %; Platelet Count 276 10^3/cmm (130-400); Red Blood Count 5.12 10^6/uL (4.1-5.3); Red Cell Distribution Width 12.4 % (12.1-15.1); White Blood Count 9.2 10^3/uL (4.0-10.0)
--- NOTE | 2022-07-24 00:54 | ED_ITS ---
HPI - Chest Pain General: Chief Complaint: Chest Pain Stated Complaint: CP Time Seen by Provider: 07/24/22 00:21 Source: patient History of Present Illness: 62-year-old male with a history of hypertension, diabetes, and coronary disease. He is status post 4 cardiac stents he tells me. 3 in his LAD, and [address] These were placed sometime around a year and a half ago. At that point, he had had a cardiac catheterization here showing severe LAD stenosis, and CABG was recommended. The patient left the hospital AMA, and tells me that he ended up going to [facility] in [place] where the stents were placed. He also tells me that he is supposed to have a bypass surgery this coming September. He is currently incarcerated in [facility]. He says he has been off of his medications for about 3 months. He states that he had pain in his chest starting around 9 PM at rest. He was short of breath with the pain. He is still having some chest pain. He was found to be hypertensive by EMS. It was relieved to some degree by 4 sublingual nitroglycerin. He denies fever, cough, leg swelling MD complaint: chest pain Pertinent past history: coronary artery disease Onset (ago): hour(s) Timing of current episode: constant Prior episodes: Yes Onset: during rest Pain location: substernal Pain radiation: none Severity: severe Relieving factors: nitroglycerin Exacerbating factors: nothing Associated symptoms: Reports dyspnea and nausea; Deny abdominal pain, diaphoresis, fever(s), leg edema, palpitations or vomiting Treatment prior to arrival: aspirin and nitroglycerin Risk Factors: Coronary artery disease risk factors: diabetes Review of Systems Const: Denies: fever(s) or diaphoresis Card: Reports: chest pain; Denies: palpitations Resp: Reports: dyspnea; Denies: productive cough or non-productive cough GI: Reports: nausea; Denies: abdominal pain or vomiting Musc: Denies: neck pain Skin/Breast: Denies: rash Neuro: Reports: headache(s) PFSH ED PFSH: Medical History Diabetes Hypertension Surgical History History of dental surgery Family History Sister No problems noted. Mother Diabetes Social History Smoking and tobacco status: current every day smoker Alcohol intake: current Alcohol intake frequency: holidays/special occasions only Physical Exam Const: GENERAL APPEARANCE: cooperative and anxious NUTRITIONAL APPEARANCE: thin HENMT: COMMON NORMALS: normocephalic and atraumatic HEAD & SCALP: normocephalic and atraumatic Eye: COMMON NORMALS: Equal, round and reactive pupils present and EOMs intact bilaterally PUPIL: Yes Equal, round and reactive pupils present Neck/C-Spine: COMMON NORMALS: full ROM GENERAL: Yes trachea midline Chest: CHEST: Yes Symmetrical chest wall rise Resp: COMMON NORMALS: normal respiratory effort, No use of accessory muscles and clear to auscultation bilaterally AUSCULTATION: clear to auscultation bilaterally Cardio: COMMON NORMALS: regular rate and regular rhythm RATE: regular rate RHYTHM: regular rhythm GI: COMMON NORMALS: Normal to inspection, nondistended, normoactive bowel tate nds present, Soft to palpation and non-tender PALPATION: Yes Soft to palp ation Extremity: COMMON NORMALS: no pedal edema Neuro: IVETTE COMA SCALE: document GCS findings Cortez coma scale eye opening: Spontaneous Cortez coma scale verbal response: Orientated Cortez coma scale motor response: Obey commands Cortez coma scale total score: 15 Course Consultations: Consultation #1: Jose Guadalupe Time: 03:14 Vital Signs: Vital signs: Vital Signs Temperature 98.5 F 07/24/22 00:22 Pulse Rate 49 L 07/24/22 03:46 Respiratory Rate 19 H 07/24/22 03:46 Blood Pressure 135/75 07/24/22 03:46 Pulse Oximetry 98 07/24/22 04:08 Oxygen Delivery Me thod 07/24/22 02:26 MDM - Chest Pain Medical Decision Making 62-year-old male with a history of diabetes hypertension and coronary disease. He presents with chest discomfort, and hypertension. His heart rate has been 50 sinus. His EKG x2 shows sinus bradycardia with a normal axis, normal intervals, rate of 50, and no ST changes. There are no inverted T waves. His CBC is normal. His BMP is normal. His troponin is 8 originally, and 6.7 at 2 hours. Given his pain started around 9 PM, and last troponin was drawn at 230, that is 5.5 hours. his chest x-ray is nonacute. His pain is improved with nitroglycerin, and blood pressure is controlled. We spoke with [place] Delia, and it seems the patient had an appointment in January for which he was a no call no-show, and has not been seen there in over a year. He is not considered an established patient there anymore. I spoke with our 4 h youth development specialist. Given the fact that chest pain is essentially controlled at this point, the patient has had no acute ST changes on EKG, and no significant change in troponin, he agrees that the patient could be discharged on medication for his coronary disease and treated medically. Lab Data : 07/24/22 00:35 07/24/22 00:35 Radiology Impressions Chest X-Ray 07/24/22 00:30 IMPRESSION: No acute findings. Laboratory Results WBC 9.2 10^3/uL (4.0-10.0) 07/24/22 00:35 RBC 5.12 10^6/uL (4.1-5.3) 07/24/22 00:35 Hgb 15.4 g/dL (11.7-16.6) 07/24/22 00:35 Hct 45.4 % (42.0-52.0) 07/24/22 00:35 MCV 88.7 fl (80-94) 07/24/22 00:35 MCH 30.1 pg (28.0-34.0) 07/24/22 00:35 MCHC 33.9 g/dL (30.0-36.0) 07/24/22 00:35 RDW 12.4 % (12.1-15.1) 07/24/22 00:35 Plt Count 276 10^3/cmm (130-400) 07/24/22 00:35 MPV 10.1 fL (7.4-10.4) 07/24/22 00:35 Neut % (Auto) 60.6 % 07/24/22 00:35 Lymph % (Auto) 29.0 % 07/24/22 00:35 [place] % (Auto) 8.3 % 07/24/22 00:35 Eos % (Auto) 1.6 % 07/24/22 00:35 Baso % (Auto) 0.2 % 07/24/22 00:35 Neut # (Auto) 5.58 10^3/uL (1.8-7.7) 07/24/22 00:35 Lymph # (Auto) 2.7 10^3/uL (0.8-4.8) 07/24/22 00:35 [place] # (Auto) 0.8 10^3/uL (0.2-0.9) 07/24/22 00:35 Eos # (Auto) 0.2 10^3/uL (0.0-0.8) 07/24/22 00:35 Baso # (Auto) 0.0 10^3/uL (0.0-0.1) 07/24/22 00:35 Nucleated RBC % (auto) 0 % 07/24/22 00:35 Nucleated RBCs # 0.0 /100WBC 07/24/22 00:35 PT 14.00 SECONDS (12.1-14.9) 07/24/22 00:35 INR 1.05 (0.8-1.2) 07/24/22 00:35 APTT 30.0 SECONDS (23.9-36.7) 07/24/22 00:35 Sodium 140 mmol/L (136-145) 07/24/22 00:35 Potassium 3.9 mmol/L (3.5-5.1) 07/24/22 00:35 Chloride 100 mmol/L (98-107) 07/24/22 00:35 Carbon Dioxide 25 mmol/L (22-29) 07/24/22 00:35 Anion Gap 18.9 (5-19) 07/24/22 00:35 BUN 17 mg/dL (8-23) 07/24/22 00:35 Creatinine 0.9 mg/dL (0.7-1.2) 07/24/22 00:35 GFR Calculation 86.1 mL/min (90-130) L 07/24/22 00:35 Glucose 99 mg/dL (65-115) 07/24/22 00:35 Calculated Osmolality 292 mOsm/kg (285-295) 07/24/22 00:35 Calcium 10.0 mg/dL (8.5-10.5) 07/24/22 00:35 Total Bilirubin 0.3 mg/dL (0.15-1.2) 07/24/22 00:35 AST 11 U/L (0-40) 07/24/22 00:35 ALT 9 U/L (0-41) 07/24/22 00:35 Alkaline Phosphatase 42 U/L (40-130) 07/24/22 00:35 Troponin T Baseline 8 ng/L (0-15) 07/24/22 00:35 Troponin T 120 Minute 6.71 ng/L (0-15) 07/24/22 02:16 Delta Troponin T -1.29 ABS# (0-10) L 07/24/22 02:16 NT-Pro-B Natriuret Pep 62 pg/mL (0-125) 07/24/22 00:35 Total Protein 7.4 g/dL (6.6-8.7) 07/24/22 00:35 Albumin 4.5 g/dL (3.5-5.2) 07/24/22 00:35 Globulin 2.9 g/dL (1.3-4.6) 07/24/22 00:35 Discharge Plan Discharge Patient Disposition: Home Clinical Impression: Hypertension, Diabetes, Chest pain Condition: Stable Prescriptions: New Zocor 40 mg tablet 40 mg PO DAILY Qty: 30 0RF metoprolol succinate 50 mg tablet extended release 24 hr 50 mg PO DAILY Qty: 30 0RF isosorbide mononitrate 30 mg tablet extended release 24 hr 30 mg PO DAILY Qty: 30 0RF aspirin 325 mg tablet 325 mg PO DAILY Qty: 30 0RF metformin 500 mg tablet 500 mg PO BID Qty: 60 0RF Discharge Orders: Discharge ED (Routine); Ordered 07/24/22 Ordered By: Ifeanyi Hebert Patient Instructions: Chest Pain (ED), Hypertension (ED) Activity Restrictions/Additional Instructions: Medications as directed. Return for worsening pain despite treatment, shortness of breath, other concerning symptoms. Case management can make you a follow-up appointment with cardiology. You are encouraged to keep this appointment. They will contact you this coming week regarding this. Coding Level of Care Code ED Vegetable Specker for Viraj Fwd Exam Comprehensive
[2022-07-24 01:04] LABS: INR 1.05 (0.8-1.2)
[2022-07-24] MEDS: ondansetron 2 mg/ML SDV 2 mL 4 MG IVP (01:10)
[2022-07-24] MEDS: morphine 4 mg/mL SDV 1 mL IVP (01:10)
[2022-07-24 01:19] LABS: Troponin(5th) Baseline 8 ng/L (0-15)
[2022-07-24 01:28] LABS: Alanine Aminotransferase 9 U/L (0-41); Albumin Level 4.5 g/dL (3.5-5.2); Alkaline Phosphatase 42 U/L (40-130); Aspartate Amino Transferase 11 U/L (0-40); Blood Urea Nitrogen 17 mg/dL (8-23); Carbon Dioxide 25 mmol/L (22-29); Chloride 100 mmol/L (98-107); Globulin 2.9 g/dL (1.3-4.6); Glomerular Filtration Rate 86.1 mL/min (90-130); Glucose 99 mg/dL (65-115); NT Pro B Type Natriuretic Pept 62 pg/mL (0-125); Osmolality Calculated 292 mOsm/kg (285-295); Sodium 140 mmol/L (136-145); Total Bilirubin 0.3 mg/dL (0.15-1.2); Total Protein 7.4 g/dL (6.6-8.7)
[2022-07-24 01:31] LABS: Anion Gap 18.9 (5-19); Potassium 3.9 mmol/L (3.5-5.1)
--- NOTE | 2022-07-24 02:11 | ECG_ITS ---
[facility] Test Date: 2022-07-24 Pat Name: Jeff Rosa Department: Room: Gender: Male Pruner: : 1960 Requested By: Ifeanyi Blevins Order Number: [id number] Maryann MD: Oseas Shi M.D. Measurements Intervals [place] Rate: 46 P: 64 GA: 146 QRS: 66 QRSD: 88 T: 109 QT: 464 QTc: 408 Interpretive Statements SINUS BRADYCARDIA NONSPECIFIC T-WAVE ABNORMALITY Compared to ECG 07/24/2022 00:24:37 No significant changes Electronically Signed On 07-24-2022 8:39:46 CDT by Oseas Shi M.D. [email or web address]
[2022-07-24 02:42] LABS: Troponin 5 2HR 6.71 ng/L (0-15)
[2022-07-24 03:00] LABS: Troponin 5 2HR Delta -1.29 ABS# (0-10)
--- NOTE | 2022-07-25 12:41 | DCPLANNER ---
Addendum entered by Basia Good 11/04/22 14:11: Patient had a follow up appointment scheduled with heart care - patient did not attend appointment. Addendum entered by Basia Good 07/26/22 14:12: Patient has a follow up appointment scheduled for , September 01, 2022 at 1:[address] Shi at [facility]. Clinic will call patient with appointment information. Original Note: manager clinic had message to schedule a follow up appointment for patient with cardiology. manager clinic sent patients information to the front office staff at [facility]. Patients information will be printed and reviewed. Clinic will call patient with appointment information.
== END 2022-07-24 04:09 | disposition home or self-care (01) ==
PROVIDERS: Emergency Provider Emergency Medicine
DX: R07.9 Chest pain, unspecified (principal); I10 Essential (primary) hypertension; E11.9 Type 2 diabetes mellitus without complications; Z79.82 Long term (current) use of aspirin; F17.210 Nicotine dependence, cigarettes, uncomplicated
CPT/HCPCS: 71045; 80053; 83880; 84484; 85025; 85610; 85730; 93005; 96374; 96375; 99285; J2270; J2405

== ENCOUNTER 2024-06-19 16:14 | Emergency (ER) | payer SELFPAY ==
[2024-06-19] VITALS (7 sets, daily range): BP systolic 131–162; BP diastolic 64–81; PULSE 65–79; RESP 15–18; TEMP 36.7; O2SAT 95–99; BMI 26.4
--- NOTE | 2024-06-19 16:55 | XRR_ITS ---
PROCEDURE INFORMATION: Exam: XR Chest Exam date and time: 06/19/2024 5:02 PM Age: 64 years old Clinical indication: Shortness of breath and other: Headache; Additional info: Chest pain TECHNIQUE: Imaging protocol: Radiologic exam of the chest. Views: 1 view. COMPARISON: CR XR chest 1V portable [id number] 07/24/2022 12:38 AM FINDINGS: Lungs: Unremarkable. No consolidation. Pleural spaces: Unremarkable. No pleural effusion. No pneumothorax. Heart/Mediastinum: Unremarkable. No cardiomegaly. Bones/joints: Unremarkable. XR/XR chest 1V portable [id number] IMPRESSION: No acute findings.
--- NOTE | 2024-06-19 16:55 | ECG_ITS ---
[facility] Test Date: 2024-06-19 Pat Name: Jeff Rosa Department: Room: Gender: Male Health Facilities Surveyor: : 1960 Requested By: Eldon Finley Order Number: [id number] Maryann MD: Lars Squires M.D. Measurements Intervals [place] Rate: 80 P: 68 ID: [id number] QRS: 55 QRSD: 85 T: 91 QT: 368 QTc: 426 Interpretive Statements SINUS RHYTHM SHORT ID INTERVAL NONSPECIFIC T-WAVE ABNORMALITY Compared to ECG 07/24/2022 02:11:19 Sinus bradycardia no longer present T-wave abnormality still present Electronically Signed On 06-20-2024 11:00:05 CDT by Lars Squires M.D. [email or web address]
--- NOTE | 2024-06-19 16:55 | W.ED.CHESTPA ---
Documented by User: Eldon Perry DO 06/19/24 18:09 HPI - Chest Pain General: Chief Complaint: Chest Pain Stated Complaint: cp, headache Time Seen by Provider: 06/19/24 16:45 History of Present Illness: 62-year-old male presents to the emergency room complaining of headache and chest pain. He initially left home complaining of a severe headache he relates it to the left of the midline just inside of the hairline a couple days ago he felt a knot there that is resolved now he did not hit his head he has not previously had any strokes or closed head injuries. While en route to the hospital he began to have chest pain he reports chest pain left sternum at about the level of the nipple line radiating into his shoulder. He does have a history of diabetes mellitus he has a known history of coronary artery disease he has been off of all of his medications for last couple days including clopidogrel which she normally takes. He had his stents placed at outside facilities the last 1 was approximately 3 to 4 years ago. Associated symptoms: Deny abdominal pain, dyspnea or fever(s) Related Data Previous Rx's Medication Instructions Recorded aspirin 325 mg tablet 325 mg PO DAILY #30 tabs 07/24/22 isosorbide mononitrate 30 mg 30 mg PO DAILY #30 tabs 07/24/22 tablet,extended release 24 hr metformin 500 mg tablet 500 mg PO BID #60 tabs 07/24/22 metoprolol succinate 50 mg 50 mg PO DAILY #30 tabs 07/24/22 tablet,extended release 24 hr simvastatin 40 mg tablet (Zocor) 40 mg PO DAILY #30 tabs 07/24/22 Allergies Allergy/AdvReac Type Severity Reaction Status Date / Time No Known Allergies Allergy Verified 09/01/22 09:05 Review of Systems Const: Denies: fever(s) or chills Card: Reports: chest pain Resp: Denies: dyspnea GI: Denies: abdominal pain : Denies: dysuria, urinary frequency or urinary urgency Musc: Denies: neck pain or back pain Skin/Breast: Denies: rash PFSH ED PFSH: Medical History Diabetes Hypertension Surgical History History of dental surgery Family History Sister No problems noted. Mother Diabetes Social History Smoking and tobacco/nicotine status: current every day tobacco/nicotine user Alcohol intake: current Alcohol intake frequency: holidays/special occasions only Substance/Drug Use: former Physical Exam Const: GENERAL APPEARANCE: cooperative ORIENTATION/CONSCIOUSNESS: Yes awake, Yes oriented to person, Yes oriented to place and Yes oriented to time HENMT: COMMON NORMALS: normocephalic, atraumatic and hearing grossly normal bilaterally HEAD & SCALP: normocephalic and atraumatic Resp: COMMON NORMALS: normal respiratory effort, No retractions, No use of accessory muscles and clear to auscultation bilaterally AUSCULTATION: clear to auscultation bilaterally Cardio: COMMON NORMALS: regular rate, regular rhythm and No murmurs present (Cardio) RATE: regular rate RHYTHM: regular rhythm GI: COMMON NORMALS: Soft to palpation and No hepatosplenomegaly present AUSCULTATION: Yes normoactive bowel sounds PALPATION: Yes Soft to palpation, No Tenderness to palpation present (GI), No Guarding due to palpation present (GI) and Yes No hepatosplenomegaly present Extremity: COMMON NORMALS: normal to inspection, capillary refill normal, no clubbing, cyanosis or edema, no calf tenderness and no pedal edema Neuro: SENSORIUM/ORIENTATION: Yes oriented to person, Yes oriented to place and Yes oriented to time Skin: COMMON NORMALS: no rashes or lesions noted GENERAL SKIN EXAM: no rashes or lesions noted Course Vital Signs: Vital signs: Vital Signs Temperature 98.1 F 06/19/24 16:20 Pulse Rate 65 06/19/24 19:29 Respiratory Rate 17 06/19/24 19:29 Blood Pressure 158/71 06/19/24 19:29 Pulse Oximetry 98 06/19/24 19:29 Oxygen Delivery Me thod Room Air 06/19/24 19:29 MDM - Chest Pain Medical Decision Making Care signed out to Dr. Corbin at change of shift. See final notes for diagnosis and disposition. Lab Data 06/19/24 17:10 06/19/24 17:10 Radiology Impressions Chest X-Ray 06/19/24 16:55 IMPRESSION: No acute findings. Laboratory Results WBC 10.31 10^3/uL (3.29-11.43) 06/19/24 17:10 RBC 4.82 10^6/uL (3.85-5.65) 06/19/24 17:10 Hgb 14.60 g/dL (11.27-16.99) 06/19/24 17:10 Hct 42.9 % (37-53) 06/19/24 17:10 MCV 89.0 fl (82-101) 06/19/24 17:10 MCH 30.3 pg (27-33) 06/19/24 17:10 MCHC 34.0 g/dL (30-55) 06/19/24 17:10 RDW 13.2 % (12.1-15.1) 06/19/24 17:10 Plt Count 272 10^3/cmm (157-399) 06/19/24 17:10 MPV 9.6 fL (7.4-10.4) 06/19/24 17:10 Neut % (Auto) 72.8 % 06/19/24 17:10 Lymph % (Auto) 18.3 % 06/19/24 17:10 Emery % (Auto) 6.9 % 06/19/24 17:10 Eos % (Auto) 1.4 % 06/19/24 17:10 Baso % (Auto) 0.2 % 06/19/24 17:10 Neut # (Auto) 7.51 10^3/uL (1.8-7.7) 06/19/24 17:10 Lymph # (Auto) 1.9 10^3/uL (0.8-4.8) 06/19/24 17:10 Emery # (Auto) 0.7 10^3/uL (0.2-0.9) 06/19/24 17:10 Eos # (Auto) 0.1 10^3/uL (0.0-0.8) 06/19/24 17:10 Baso # (Auto) 0.0 10^3/uL (0.0-0.1) 06/19/24 17:10 Nucleated RBC % (auto) 0 % 06/19/24 17:10 Nucleated RBCs # 0.0 /100WBC 06/19/24 17:10 Sodium 141 mmol/L (136-145) 06/19/24 17:10 Potassium 3.9 mmol/L (3.5-5.1) 06/19/24 17:10 Chloride 104 mmol/L (98-107) 06/19/24 17:10 Carbon Dioxide 25 mmol/L (22-29) 06/19/24 17:10 Anion Gap 15.9 (5-19) 06/19/24 17:10 BUN 23 mg/dL (8-23) 06/19/24 17:10 Creatinine 1.0 mg/dL (0.7-1.2) 06/19/24 17:10 GFR Calculation 75.7 mL/min (90-130) L 06/19/24 17:10 Glucose 123 mg/dL (65-115) H 06/19/24 17:10 Calculated Osmolality 297 mOsm/kg (285-295) H 06/19/24 17:10 Calcium 9.4 mg/dL (8.5-10.5) 06/19/24 17:10 Total Bilirubin 0.4 mg/dL (0.15-1.2) 06/19/24 17:10 AST 15 U/L (0-40) 06/19/24 17:10 ALT 10 U/L (0-41) 06/19/24 17:10 Alkaline Phosphatase 47 U/L (40-130) 06/19/24 17:10 Troponin T Baseline < 6 ng/L (0-15) 06/19/24 17:10 Troponin T 120 Minute 6.00 ng/L (0-15) 06/19/24 18:55 Delta Troponin T 0.52503 ABS# (0-10) 06/19/24 18:55 Total Protein 7.0 g/dL (6.6-8.7) 06/19/24 17:10 Albumin 4.4 g/dL (3.5-5.2) 06/19/24 17:10 Globulin 2.6 g/dL (1.3-4.6) 06/19/24 17:10 XR interpretation done by ED provider, pending radiology final review Discharge Plan Discharge Patient Disposition: Home Clinical Impression: Non-cardiac chest pain Condition: Stable Prescriptions: No Action Zocor 40 mg tablet 40 mg PO DAILY Qty: 30 0RF metoprolol succinate 50 mg tablet extended release 24 hr 50 mg PO DAILY Qty: 30 0RF isosorbide mononitrate 30 mg tablet extended release 24 hr 30 mg PO DAILY Qty: 30 0RF aspirin 325 mg tablet 325 mg PO DAILY Qty: 30 0RF metformin 500 mg tablet 500 mg PO BID Qty: 60 0RF Discharge Orders: Discharge ED (Routine); Ordered 06/19/24 Ordered By: Lucina Corbin Discharge Diet: Usual diet Discharge Activity: Increase activity as tolerated Patient Instructions: Noncardiac Chest Pain (ED) Activity Restrictions/Additional Instructions: Thank you for choosing [facility] for your healthcare needs today. Please realize this is an emergency room and that we are providing you with a medical screening exam and this may not be complete and all inclusive of all the testing and or work up that you may need to determine your ailment or severity of your illness. You have been screened and evaluated and felt safe for discharge. Health conditions do change or evolve sometimes and as such it is important that you follow up with your Primary Doctor to be re checked, 3-5 days is a general good time frame for follow up. You are always welcome to return to the ED for re assessment if your symptoms are worsening or you have new concerns Coding Level of Care Code ED Furnace Charger for Chg Fwd Documented by User: Lucina Corbin MD 06/19/24 19:31 HPI - Chest Pain General: Chief Complaint: Chest Pain Stated Complaint: cp, headache Time Seen by Provider: 06/19/24 16:45 Related Data Previous Rx's Medication Instructions Recorded aspirin 325 mg tablet 325 mg PO DAILY #30 tabs 07/24/22 isosorbide mononitrate 30 mg 30 mg PO DAILY #30 tabs 07/24/22 tablet,extended release 24 hr metformin 500 mg tablet 500 mg PO BID #60 tabs 07/24/22 metoprolol succinate 50 mg 50 mg PO DAILY #30 tabs 07/24/22 tablet,extended release 24 hr simvastatin 40 mg tablet (Zocor) 40 mg PO DAILY #30 tabs 07/24/22 Allergies Allergy/AdvReac Type Severity Reaction Status Date / Time No Known Allergies Allergy Verified 09/01/22 09:05 [facility] ED [facility]: Medical History Diabetes Hypertension Surgical History History of dental surgery Family History Sister No problems noted. Mother Diabetes Social History Smoking and tobacco/nicotine status: current every day tobacco/nicotine user Alcohol intake: current Alcohol intake frequency: holidays/special occasions only Substance/Drug Use: former Course Vital Signs: Vital signs: Vital Signs Temperature 98.1 F 06/19/24 16:20 Pulse Rate 65 06/19/24 19:29 Respiratory Rate 17 06/19/24 19:29 Blood Pressure 158/71 06/19/24 19:29 Pulse Oximetry 98 06/19/24 19:29 Oxygen Delivery Or thod Room Air 06/19/24 19:29 MDM - Chest Pain Medical Decision Making Care signed out to Dr. Corbin at change of shift. See final notes for diagnosis and disposition. Patient care was transitioned to sd at shift change Differential diagnosis for patient with chest pain includes but is not limited to and based on the above HPI, review of systems and physical exam: Pneumonia. unstable angina. angina. Acute coronary syndrome / [place]. Pulmonary embolism. Costochondritis / musculoskeletal. Pleurisy. Pericarditis. Esophageal spasm. Pancreatis. Cholecystitis. Orders placed to evaluate differential diagnosis based on the above differential, HPI and physical exam Chest x-ray: No acute process. No infiltrate. No pneumothorax. This was reviewed and interpreted by myself the ER physician. EKG: Time 1613. Rate 80 normal sinus rhythm, No ST-T changes, no ectopy, normal MD & QRS intervals, This was reviewed and interpreted by myself the ER physician at [address] Perry Repeat EKG: Time 1849. Rate 63. Normal sinus rhythm, No ST-T changes, no ectopy, normal MD & QRS intervals, This was reviewed and interpreted by myself the ER physician at 1851. No changes from previous EKG Lab Review: Laboratory results were reviewed and interpreted by myself the emergency room physician. Lab work is unremarkable. No leukocytosis. No anemia. BUN and creatinine are 23 and 1. Serial cardiac markers are negative. I reviewed the patient's medical record. Assessment and plan: Chest pain, noncardiac - Discharged home - Discussed findings and plan with patient. Answered any questions. - All laboratory values were reviewed and interpreted personally by myself, the ER physician - All imaging was reviewed and interpreted personally by myself, the ER physician. - Evaluation and treatment of this problem were appropriate in the emergency setting Lab Data 06/19/24 17:10 06/19/24 17:10 Radiology Impressions Chest X-Ray 06/19/24 16:55 IMPRESSION: No acute findings. Laboratory Results WBC 10.31 10^3/uL (3.29-11.43) 06/19/24 17:10 RBC 4.82 10^6/uL (3.85-5.65) 06/19/24 17:10 Hgb 14.60 g/dL (11.27-16.99) 06/19/24 17:10 Hct 42.9 % (37-53) 06/19/24 17:10 MCV 89.0 fl (82-101) 06/19/24 17:10 MCH 30.3 pg (27-33) 06/19/24 17:10 MCHC 34.0 g/dL (30-55) 06/19/24 17:10 RDW 13.2 % (12.1-15.1) 06/19/24 17:10 Plt Count 272 10^3/cmm (157-399) 06/19/24 17:10 MPV 9.6 fL (7.4-10.4) 06/19/24 17:10 Neut % (Auto) 72.8 % 06/19/24 17:10 Lymph % (Auto) 18.3 % 06/19/24 17:10 Emery % (Auto) 6.9 % 06/19/24 17:10 Eos % (Auto) 1.4 % 06/19/24 17:10 Baso % (Auto) 0.2 % 06/19/24 17:10 Neut # (Auto) 7.51 10^3/uL (1.8-7.7) 06/19/24 17:10 Lymph # (Auto) 1.9 10^3/uL (0.8-4.8) 06/19/24 17:10 Emery # (Auto) 0.7 10^3/uL (0.2-0.9) 06/19/24 17:10 Eos # (Auto) 0.1 10^3/uL (0.0-0.8) 06/19/24 17:10 Baso # (Auto) 0.0 10^3/uL (0.0-0.1) 06/19/24 17:10 Nucleated RBC % (auto) 0 % 06/19/24 17:10 Nucleated RBCs # 0.0 /100WBC 06/19/24 17:10 Sodium 141 mmol/L (136-145) 06/19/24 17:10 Potassium 3.9 mmol/L (3.5-5.1) 06/19/24 17:10 Chloride 104 mmol/L (98-107) 06/19/24 17:10 Carbon Dioxide 25 mmol/L (22-29) 06/19/24 17:10 Anion Gap 15.9 (5-19) 06/19/24 17:10 BUN 23 mg/dL (8-23) 06/19/24 17:10 Creatinine 1.0 mg/dL (0.7-1.2) 06/19/24 17:10 GFR Calculation 75.7 mL/min (90-130) L 06/19/24 17:10 Glucose 123 mg/dL (65-115) H 06/19/24 17:10 Calculated Osmolality 297 mOsm/kg (285-295) H 06/19/24 17:10 Calcium 9.4 mg/dL (8.5-10.5) 06/19/24 17:10 Total Bilirubin 0.4 mg/dL (0.15-1.2) 06/19/24 17:10 AST 15 U/L (0-40) 06/19/24 17:10 ALT 10 U/L (0-41) 06/19/24 17:10 Alkaline Phosphatase 47 U/L (40-130) 06/19/24 17:10 Troponin T Baseline < 6 ng/L (0-15) 06/19/24 17:10 Troponin T 120 Minute 6.00 ng/L (0-15) 06/19/24 18:55 Delta Troponin T 0.03603 ABS# (0-10) 06/19/24 18:55 Total Protein 7.0 g/dL (6.6-8.7) 06/19/24 17:10 Albumin 4.4 g/dL (3.5-5.2) 06/19/24 17:10 Globulin 2.6 g/dL (1.3-4.6) 06/19/24 17:10 Discharge Plan Discharge Patient Disposition: Home Clinical Impression: Non-cardiac chest pain Condition: Stable Prescriptions: No Action Zocor 40 mg tablet 40 mg PO DAILY Qty: 30 0RF metoprolol succinate 50 mg tablet extended release 24 hr 50 mg PO DAILY Qty: 30 0RF isosorbide mononitrate 30 mg tablet extended release 24 hr 30 mg PO DAILY Qty: 30 0RF aspirin 325 mg tablet 325 mg PO DAILY Qty: 30 0RF metformin 500 mg tablet 500 mg PO BID Qty: 60 0RF Discharge Orders: Discharge ED (Routine); Ordered 06/19/24 Ordered By: Lucina Corbin Discharge Diet: Usual diet Discharge Activity: Increase activity as tolerated Patient Instructions: Noncardiac Chest Pain (ED) Activity Restrictions/Additional Instructions: Thank you for choosing [facility] for your healthcare needs today. Please realize this is an emergency room and that we are providing you with a medical screening exam and this may not be complete and all inclusive of all the testing and or work up that you may need to determine your ailment or severity of your illness. You have been screened and evaluated and felt safe for discharge. Health conditions do change or evolve sometimes and as such it is important that you follow up with your Primary Doctor to be re checked, 3-5 days is a general good time frame for follow up. You are always welcome to return to the ED for re assessment if your symptoms are worsening or you have new concerns Coding Level of Care Code ED Furnace Charger for Viraj Baxter
--- NOTE | 2024-06-19 17:03 | PC.NURSE ---
per pt request to contact Probation/emergency communications officer to inform them of him being in ER. this nurse contacted office, per PO office to contact them upon pt d/c or admit.
[2024-06-19] MEDS: aspirin 81 mg Chew Tablet 324 MG PO (17:05)
[2024-06-19 17:18] LABS: Basophils % 0.2 %; Eosinophils # 0.1 10^3/uL (0.0-0.8); Eosinophils % 1.4 %; Hematocrit 42.9 % (37-53); Lymphocytes # 1.9 10^3/uL (0.8-4.8); Lymphocytes % 18.3 %; Mean Corpuscular Hemoglobin 30.3 pg (27-33); Mean Platelet Volume 9.6 fL (7.4-10.4); Monocytes # 0.7 10^3/uL (0.2-0.9); Monocytes % 6.9 %; Neutrophils # 7.51 10^3/uL (1.8-7.7); Neutrophils % 72.8 %; Nucleated Red Blood Cells % 0 %; Platelet Count 272 10^3/cmm (157-399); Red Blood Count 4.82 10^6/uL (3.85-5.65); Red Cell Distribution Width 13.2 % (12.1-15.1); White Blood Count 10.31 10^3/uL (3.29-11.43)
[2024-06-19 17:49] LABS: Troponin(5th) Baseline < 6 ng/L (0-15)
[2024-06-19 17:50] LABS: Alanine Aminotransferase 10 U/L (0-41); Albumin Level 4.4 g/dL (3.5-5.2); Alkaline Phosphatase 47 U/L (40-130); Aspartate Amino Transferase 15 U/L (0-40); Blood Urea Nitrogen 23 mg/dL (8-23); Calcium 9.4 mg/dL (8.5-10.5); Carbon Dioxide 25 mmol/L (22-29); Chloride 104 mmol/L (98-107); Globulin 2.6 g/dL (1.3-4.6); Glomerular Filtration Rate 75.7 mL/min (90-130); Glucose 123 mg/dL (65-115); Osmolality Calculated 297 mOsm/kg (285-295); Sodium 141 mmol/L (136-145); Total Bilirubin 0.4 mg/dL (0.15-1.2)
[2024-06-19 17:52] LABS: Anion Gap 15.9 (5-19); Potassium 3.9 mmol/L (3.5-5.1)
--- NOTE | 2024-06-19 18:55 | ECG_ITS ---
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 Measurements Intervals [place] Rate: 63 P: 56 CT: 141 QRS: 51 QRSD: 90 T: 76 QT: 424 QTc: 437 Interpretive Statements SINUS RHYTHM Compared to ECG 06/19/2024 16:13:30 T-wave abnormality no longer present Electronically Signed On 06-20-2024 11:07:47 CDT by Lars Squires M.D. [email or web address]
[2024-06-19 19:22] LABS: Troponin 5 2HR Delta 0.00001 ABS# (0-10)
== END 2024-06-19 20:12 | disposition home or self-care (01) ==
PROVIDERS: Family Medicine; Emergency Provider Emergency Medicine
DX: R07.89 Other chest pain (principal); Z79.82 Long term (current) use of aspirin; Z79.84 Long term (current) use of oral hypoglycemic drugs; E11.9 Type 2 diabetes mellitus without complications; I10 Essential (primary) hypertension; Z72.0 Tobacco use
CPT/HCPCS: 36415; 71045; 80053; 84484; 85025; 93005; 99285